=== PATIENT | female | born 2000 | race African-American/Black ===

== ENCOUNTER 2020-07-08 23:03 | Emergency (ER) | payer OTHER ==
[~2020-07-08] VITALS: Ht 149.9 cm; Wt 63.0 kg
[2020-07-09 01:17] VITALS: BP 120/72; TEMP 98.6
== END 2020-07-09 01:17 | disposition home or self-care (01) ==
LOC: ED 23:03
DX: N39.0 Urinary tract infection, site not specified (principal)
CPT/HCPCS: 81000; 81025; 96372; 99283; J0696